=== PATIENT | female | born 1980 | race Caucasian/White ===

== ENCOUNTER 2023-09-25 08:05 | Observation (INO) | payer BC ==
[~2023-09-25] VITALS: Ht 170.2 cm; Wt 77.0 kg
[2023-09-25 08:53] LABS: Urine Bacteria None Seen /hpf (None Seen)
[2023-09-25 09:17] LABS: Alanine Aminotransferase 14 U/L (7-40); Albumin 4.5 g/dL (3.2-4.8); Alkaline Phosphatase 58 U/L (46-116); Anion Gap 7 (5-15); Aspartate Aminotransferase 11 U/L (13-40); Bilirubin, Total 0.4 mg/dL (0.2-1.0); Blood Urea Nitrogen 9 mg/dL (9-23); Carbon Dioxide 24 mmol/L (20-30); Chloride 106 mmol/L (98-107); Glucose 93 mg/dL (74-106); Potassium 3.9 mmol/L (3.5-5.1); Sodium 137 mmol/L (136-145); Total Protein 7.2 g/dL (5.7-8.2)
[2023-09-25 09:26] LABS: Eosinophils # (auto) 0.2 10 ^3/uL (0-0.8); Hematocrit 25.1 % (36.0-46.0); Mean Corpuscular Hemoglobin 15.4 pg (28.0-32.0); Mean Corpuscular Hgb Conc. 27.8 g/dL (32.0-36.0); Mean Corpuscular Volume 55.4 fL (80.0-100.0); Monocytes # (auto) 0.4 10 ^3/uL (0-1.3); Neutrophils # (auto) 2.2 10 ^3/uL (1.6-8.6); Red Blood Cells 4.54 10^6/uL (4.0-5.20); White Blood Cell 5.4 10^3/uL (4.4-10.8)
[2023-09-25 09:28] LABS: Basophils # (auto) 0 10 ^3/uL (0-0.2); Basophils % (auto) 0.8 % (0.0-2.0); Eosinophils % (auto) 3.4 % (0.0-7.0); Lymphocytes # (auto) 2.6 10 ^3/uL (0.4-5.4); Lymphocytes % (auto) 48.7 % (10.0-50.0); Monocytes % (auto) 6.7 % (0.0-12.0); Neutrophils % (auto) 40.4 % (37.0-80.0); Red Cell Distribution Width 19.7 % (11.8-14.3)
[2023-09-25 11:33] LABS: Ovalocytes MANY; Platelet Estimate Adequate
[2023-09-25 11:34] LABS: Hypochromia Marked
[2023-09-25 15:03] LABS: Urine Clarity CLEAR (Clear); Urine Color Colorless (Yellow); Urine Specific Gravity 1.007 (1.001-1.035); Urine Urobilinogen Normal (Negative); Urine WBC <1 /hpf (0 - 5)
[2023-09-25 15:05] LABS: Urine Hyaline Cast 1+ /lpf (0 - 2)
[2023-09-25 15:12] LABS: Urine Protein, UAD Negative (Negative)
[2023-09-25 15:13] LABS: Urine Blood Negative /uL (Negative)
[2023-09-25] MEDS ORDERED: CEFD300C2 PO ×2 (15:15)
[2023-09-25 19:46] VITALS: O2SAT 100
[2023-09-25] MEDS ORDERED: HYDROcodone-ACET 5/325MG TAB PO PRN (23:45)
[2023-09-25] MEDS ORDERED: ACETAMINOPHEN 325 MG TAB PO PRN (23:45)
[2023-09-25] MEDS ORDERED: hydrALAZINE HCL 10 MG TAB PO PRN (23:45)
[2023-09-26] VITALS (7 sets, daily range): BP systolic 114–133; BP diastolic 67–85; PULSE 80–94; RESP 15–21; TEMP 97.9–98.4; O2SAT 99
[2023-09-26 01:22] LABS: % Iron Saturation 3.2 % (15-50)
[2023-09-26 06:46] LABS: Basophils # (auto) 0 10 ^3/uL (0-0.2); Basophils % (auto) 0.4 % (0.0-2.0); Eosinophils # (auto) 0.2 10 ^3/uL (0-0.8); Hematocrit 28.3 % (36.0-46.0); Hemoglobin 8.2 g/dL (12.2-16.2); Lymphocytes # (auto) 3.1 10 ^3/uL (0.4-5.4); Monocytes # (auto) 0.7 10 ^3/uL (0-1.3); White Blood Cell 7.8 10^3/uL (4.4-10.8)
[2023-09-26 06:55] LABS: Eosinophils % (auto) 2.8 % (0.0-7.0); Lymphocytes % (auto) 39.9 % (10.0-50.0); Mean Corpuscular Volume 58.6 fL (80.0-100.0); Monocytes % (auto) 8.7 % (0.0-12.0); Neutrophils # (auto) 3.8 10 ^3/uL (1.6-8.6); Neutrophils % (auto) 48.2 % (37.0-80.0); Red Blood Cells 4.82 10^6/uL (4.0-5.20)
[2023-09-26 07:11] LABS: Red Cell Distribution Width 21.4 % (11.8-14.3)
[2023-09-26 09:22] LABS: Anisocytosis Moderate; Hypochromia Marked
[2023-09-26 09:23] LABS: Ovalocytes MANY; Platelet Estimate Adequate
== END 2023-09-26 14:32 | disposition home or self-care (01) ==
LOC: ER 08:05 → TELE 23:43 → UNDODEPER 09-26 14:24
PROVIDERS: ADMIT Nurse Practitioner Family; ATTEND Nurse Practitioner Family
DX: D50.9 Iron deficiency anemia, unspecified (principal); N92.0 Excessive and frequent menstruation with regular cycle; D25.9 Leiomyoma of uterus, unspecified; Z87.891 Personal history of nicotine dependence
CPT/HCPCS: 36415; 36430; 80053; 81001; 83540; 83550; 84702; 85025; 86850; 86900; 86901; 86920; 99284; G0378; P9016

== ENCOUNTER 2024-11-30 07:26 | Emergency (ER) | payer BC ==
[~2024-11-30] VITALS: Ht 170.2 cm; Wt 71.4 kg
--- NOTE | 2024-11-30 07:38 | ECG ---
[facility] Test Date: 2024-11-30 Test Time: 07:37:18 Pat Name: FRANCISCO STEPHENSON Department: ER Room: Gender: F Insulation Hoseman: ELENO : 1980 Requested By: NANDA DIAS Order Number: [id number] Reading MD: Jefry Celeste Measurements Intervals [place] Rate: 95 P: 62 IN: 152 QRS: 12 QRSD: 84 T: 43 QT: 353 QTc: 444 Interpretive Statements Sinus rhythm Probable left atrial enlargement Electronically Signed On 12-01-2024 19:14:56 PDT by Jefry Celeste Please click the below link to view image of tracing.
[2024-11-30 07:56] VITALS: PULSE 102; RESP 16; O2SAT 100
[2024-11-30 07:58] LABS: Basophils # (auto) 0 10 ^3/uL (0-0.2); Basophils % (auto) 0.6 % (0.0-2.0); Eosinophils # (auto) 0.3 10 ^3/uL (0-0.8); Lymphocytes # (auto) 2.2 10 ^3/uL (0.4-5.4); White Blood Cell 5.9 10^3/uL (4.4-10.8)
[2024-11-30 08:00] LABS: Eosinophils % (auto) 5.6 % (0.0-7.0); Hematocrit 29.5 % (36.0-46.0); Hemoglobin 8.3 g/dL (12.2-16.2); Lymphocytes % (auto) 36.8 % (10.0-50.0); Mean Corpuscular Hemoglobin 16.7 pg (28.0-32.0); Mean Corpuscular Hgb Conc. 28.3 g/dL (32.0-36.0); Monocytes # (auto) 0.4 10 ^3/uL (0-1.3); Platelet Count (auto) 310 10^3/uL (140-450); Red Cell Distribution Width 23.6 % (11.8-14.3)
[2024-11-30 08:06] LABS: Sodium 139 mmol/L (136-145)
[2024-11-30 08:07] LABS: Anion Gap 8 (5-15); Calcium 9.3 mg/dL (8.7-10.4); Carbon Dioxide 24 mmol/L (20-31)
[2024-11-30 08:09] LABS: Chloride 107 mmol/L (98-107)
--- NOTE | 2024-11-30 08:10 | ED.PDOC ---
History of Present Illness HPI Comments 44F presents to the ER w/ prior Hx of anemia which may be associated to the c/c of iron deficiency. Pt reports that she had her blood drawn on tuesday of 11/23/24 by her PCP due from her feeling N/, Near Syncope and anxiety. 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 Pt notes that she has had these symptoms in the past. Denies chills, fever, /V/D, SOB, CP or no other associated symptom's, modifiers, recent injuries or sick contacts at this time. Chief Complaint: Abnormal LAB's Time Seen by MD: 07:40 Primary Care Provider: [facility] Reviewed Notes: Nurses Notes, Medications, Allergies Allergies: Coded Allergies: NO KNOWN ALLERGIES (Unverified , 06/13/15) Information Source: Patient Mode of Arrival: Ambulatory Severity: Moderate Timing: Hours Duration: Since onset, Hours Prehospital treatment: None Past Medical History PAST MEDICAL HISTORY: Anemia Surgical History: Denies all surgeries PRODUCT MANAGEMENT INTERN History: Uterine Fibroids Family History Family History: Reviewed,noncontributory to illness, Unknown Social History Smoker: Non-Smoker Alcohol: Denies ETOH Use Drugs: Denies Drug Use Lives In: Home Constitutional: denies: chills, diaphoresis, fatigue, fever, malaise, sweats, weakness, others EENTM: denies: blurred vision, double vision, ear bleeding, ear discharge, ear drainage, ear pain, ear ringing, eye pain, eye redness, hearing loss, mouth pain, mouth swelling, nasal discharge, nose bleeding, nose congestion, nose pain, photophobia, tearing, throat pain, throat swelling, voice changes, others Respiratory: denies: cough, hemoptysis, orthopnea, SOB at rest, shortness of breath, SOB with excertion, stridor, wheezing, others Cardiovascular: denies: chest pain, dizzy spells, diaphoresis, Dyspnea on exertion, edema, irregular heart beat, left arm pain, lightheadedness, palpitations, PND, syncope, others Gastrointestinal: denies: abdomen distended, abdominal pain, blood streaked bowels, constipated, diarrhea, dysphagia, difficulty swallowing, hematemesis, melena, nausea, poor appetite, poor fluid intake, rectal bleeding, rectal pain, vomiting, others Genitourinary: denies: abnormal vagina bleeding, burning, dyspareunia, dysuria, flank pain, frequency, hematuria, incontinence, pain, , vagina discharge, urgency, others Neurological: denies: dizziness, fainting, headache, left sided numbness, left sided weakness, numbness, paresthesia, pre-existing deficit, right sided numbne ss, right sided weakness, seizure, speech problems, tingling, tremors, weakness, others Musculoskeletal: denies: back pain, gout, joint pain, joint swelling, muscle pain, muscle stiffness, neck pain, others Integumetry: denies: bruises, change in color, change in hair/nails, dryness, laceration, lesions, lumps, rash, wounds, others Allergic/Immunocompromised: denies: Difficulty Healing, Frequent Infections, Hives, Itching, others Hematologic/Lymphatic: reports: anemia; denies: blood clots, easy bleeding, easy bruising, swollen glands, others Endocrine: denies: excessive hunger, excessive sweating, excessive thirst, excessive urination, flushing, intolerance to cold, intolerance to heat, unexplained weight gain, unexplained weight loss, others Psychiatric: denies: anxiety, bipolar disorder, depression, hopeless, panic disorder, schizophrenia, sleepless, suicidal, others All Other Systems: Reviewed and Negative Physical Exam General Appearance: No Apparent Distress, Normal HEENT: Normal ENT Inspection, Pharynx Normal, TMs Normal Neck: Full Range of Motion, Non-Tender, Normal, Normal Inspection Respiratory: Chest Non-Tender, Lungs Clear, No Accessory Muscle Use, No Respiratory Distress, Normal Breath Sounds Cardiovascular: No Edema, No JVD, No Murmur, No Gallop, Normal Peripheral Pulses, Regular Rate/Rhythm Breast Exam: Deferred Gastrointestinal: No Organomegaly, Non Tender, No Pulsatile Mass, Normal Bowel Sounds, Soft Genitalia: Deferred Pelvic: Deferred Rectal: Deferred Extremities: No calf tenderness, Normal capillary refill, Normal inspection, Normal range of motion, Non-tender, No pedal edema Musculoskeletal : Apperance: Normal Neurologic: Alert, 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 Was a procedure done?: No Differential Dx Considerations may include: Traumatic anemia, iron deficiency anemia, fibroid X-Ray, Labs, Meds, VS Vital Signs Date Time Temp Pulse Resp B/P (MAP) Pulse Ox O2 Delivery O2 Flow Rate FiO2 11/30/24 08:30 91 18 98 Room Air* 0 21 11/30/24 08:29 98.5 91 18 134/90 (105) 98 98.5 11/30/24 07:56 102 16 100 Room Air* 0 21 11/30/24 07:37 95 11/30/24 07:33 97.9 102 16 139/97 (111) 100 Lab Test 11/30/24 07:46 11/30/24 07:35 Range/Units White Blood Count 5.9 4.4-10.8 10^3/uL Red Blood Count 5.00 4.0-5.20 10^6/uL Hemoglobin 8.3 L 12.2-16.2 g/dL Hematocrit 29.5 L 36.0-46.0 % Mean Corpuscular Volume 59.0 L 80.0-100.0 fL Mean Corpuscular Hemoglobin 16.7 L 28.0-32.0 pg Mean Corpuscular Hemoglobin Concent 28.3 L 32.0-36.0 g/dL Red Cell Distribution Width 23.6 H 11.8-14.3 % Platelet Count 310 140-450 10^3/uL Mean Platelet Volume 9.2 6.9-10.8 fL Neutrophils (%) (Auto) 51.0 37.0-80.0 % Lymphocytes (%) (Auto) 36.8 10.0-50.0 % Monocytes (%) (Auto) 6.0 0.0-12.0 % Eosinophils (%) (Auto) 5.6 0.0-7.0 % Basophils (%) (Auto) 0.6 0.0-2.0 % Neutrophils # (Auto) 3.0 1.6-8.6 10 ^3/uL Lymphocytes # (Auto) 2.2 0.4-5.4 10 ^3/uL Monocytes # (Auto) 0.4 0-1.3 10 ^3/uL Eosinophils # (Auto) 0.3 0-0.8 10 ^3/uL Basophils # (Auto) 0 0-0.2 10 ^3/uL Nucleated Red Blood Cells 0.0 % Prothrombin Time 10.1 9.3-11.8 sec Prothrombin Time INR 0.95 0.9-1.15 Activated Partial Thromboplast Time 23.7 L 24.5-34.5 SEC Sodium Level 139 136-145 mmol/L Potassium Level 4.0 3.5-5.1 mmol/L Chloride Level 107 98-107 mmol/L Carbon Dioxide Level 24 20-31 mmol/L Anion Gap 8 5-15 Blood Urea Nitrogen 9 9-23 mg/dL Creatinine 0.61 0.550-1.02 mg/dL Glomerular Filtration Rate Calc 113 >90 mL/min BUN/Creatinine Ratio 14.8 10.0-20.0 Serum Glucose 93 74-106 mg/dL Calcium Level 9.3 8.7-10.4 mg/dL Urine Color Light-orange Yellow Urine Clarity Turbid H Clear Urine pH 5.5 5.0-9.0 Urine Specific [place] 1.020 1.001-1.035 Urine Protein Trace H Negative Urine Ketones Negative Negative Urine Blood Negative Negative /uL Urine Nitrite Negative Negative Urine Bilirubin Negative Negative Urine Urobilinogen Normal Negative mg/dL Urine Leukocyte Esterase 2+ Negative /uL Urine RBC 8 0 - 4 /hpf Urine Microscopic WBC 10 H 0-5 /HPF Urine Squamous Epithelial Cells Mod <5 /hpf Urine Bacteria Few H None Seen /hpf Urine Mucus Few None Seen Urine Glucose Normal Normal mg/dL Time of 1ST Reevaluation: 08:10 Reevaluation 1ST: Unchanged Patient Education/Counseling: Diagnosis, Treatment, Prognosis Family Education/Counseling: No Family Present Departure 1 Departure Time of Disposition: 09:03 (Patient's hemoglobin is improving. Patient has no acute complaints. We will discharge patient home with outpatient follow up) Impression: Primary Impression: Anemia Qualified Codes: D64.9 - Anemia, unspecified Disposition: 01 HOME / SELF CARE / HOMELESS Condition: Stable Additional Instructions: Your hemoglobin today was 8.2. It is important to follow up with the regular doctor. Discharged With: Self Critical Care Note Critical Care Time?: No Stability Stability form required: No I personally scribed for NANDA DIAS MD ([email or web address]) on 11/30/24 at 08:10. Electronically submitted by Gurinder Harrell ([email or web address]). NANDA DIAS MD Nov 30, 2024 08:10
[2024-11-30 08:12] LABS: BUN/Creatinine Ratio 14.8 (10.0-20.0); Blood Urea Nitrogen 9 mg/dL (9-23); Glucose 93 mg/dL (74-106)
[2024-11-30 08:18] LABS: Urine Bacteria FEW /hpf (None Seen); Urine Blood Negative /uL (Negative); Urine Clarity Turbid (Clear); Urine Color Light-Orange (Yellow); Urine Mucus FEW (None Seen); Urine Protein, UAD TRACE (Negative); Urine Squamous Epithelial Cell MOD /hpf (<5); Urine Urobilinogen Normal (Negative); Urine WBC 10 /HPF (0-5); Urine pH 5.5 (5.0-9.0)
[2024-11-30 08:29] VITALS: TEMP 98.5
[2024-11-30 08:30] VITALS: PULSE 91; RESP 18; O2SAT 98
[2024-11-30 08:36] LABS: INR 0.95 (0.9-1.15); Partial Thromboplastin Time 23.7 SEC (24.5-34.5); Prothrombin Time 10.1 sec (9.3-11.8)
[2024-11-30 09:00] VITALS: BP 120/84; PULSE 77; RESP 16; O2SAT 96
== END 2024-11-30 09:13 | disposition home or self-care (01) ==
LOC: ER 07:26
DX: D50.9 Iron deficiency anemia, unspecified (principal)
CPT/HCPCS: 36415; 80048; 81001; 85025; 85610; 85730; 86850; 86900; 86901; 93005